=== PATIENT | female | born 1960 | race Caucasian/White ===

== ENCOUNTER → 2023-09-03 09:17 | Outpatient (REF) | payer MEDICARE, OTHER, SELFPAY | LOC: DHCBS MAIN 09:17 | PROVIDERS: ATTENDING PHYSICIAN Internal Medicine Cardiovascular Disease; FAMILY PHYSICIAN Physician Assistant Medical | DX: I47.20 Ventricular tachycardia, unspecified (principal) | CPT/HCPCS: 93306 ==

== ENCOUNTER → 2023-10-21 11:18 | Outpatient (REF) | payer MEDICARE, OTHER, SELFPAY | LOC: WDC 11:18 | PROVIDERS: ATTENDING PHYSICIAN Physician Assistant Medical | DX: Z12.31 Encounter for screening mammogram for malignant neoplasm of breast (principal) | CPT/HCPCS: 77063; 77067 ==

== ENCOUNTER 2023-11-30 08:51 | Inpatient (IN) | payer MEDICARE, OTHER, SELFPAY ==
[2023-11-30 09:14] VITALS: BP 116/68
[2023-11-30 09:53] LABS: Hematocrit 37.2 % (37.0-47.0); Hemoglobin 12.6 g/dL (12.0-16.0); Mean Corp Hgb Conc. 33.9 g/dL (33.0-37.0); Mean Corpuscular Hgb 32.3 pg (27.0-31.0); Mean Corpuscular Volume 95.4 fL (81.0-99.0); Mean Platelet Volume 11.4 fL (7.4-10.4); Platelet Count 176 10^3/uL (130-400); Red Cell Dist. Width 12.5 % (11.5-14.5); White Blood Cell Count 3.7 10^3/uL (4.8-10.8)
--- NOTE | 2023-11-30 10:08 | CON.CAR ---
Addendum entered and electronically signed by Clemente Bazzi MD 11/30/23 11:50:
Attending addendum: Patient seen and examined. PA note reviewed and findings confirmed by me. Briefly this is a 63 y/o female with a PMH notable for an ascending aortic root and valve replacement with a [employer] mechanical AV. She is chronically
anticoagulated with warfarin. She has a reported history of anaphylaxis on beta blockers. She has a history of PAF as well as NSVT by device monitoring on 10/20/23 and is now admitted for Tikosyn loading. She has a family history of amiodarone
toxicity and prefers to avoid amiodarone if possible. She generally feels well. No syncope or near syncope.
PE:
Gen: awake, alert, oriented
HEENT: NC/AT, sclera anicteric
Lungs: Clear bilaterally
CV: Prosthetic valve click is crisp
Ext: No edema
RECOMMENDATIONS:
- Planned Tikosyn load: Planned 500mg bid based on CrCl of 90 ml/min and QTc: 410 msec
- CrCl is 90 ml/min
- Follow INR closely although there is no interaction between Tikosyn and warfarin
- Will follow QTc.
.
Original Note:
Consultation
Consultation Request
Date/Time Consultation Requested: 11/30/23
Date/Time Consultation Performed: 11/30/23
Performing Provider: Dr. Bazzi
Reason for Consultation: H&P for Tikosyn loading
Medical History
-
History of Present Illness:
Patient was seen in the office on 10/20/23 and on device check was noted to have NSVT. Patient with a h/o paroxysmal Afib. Patient does not generally have a significant burden for NSVT. Given presence of NSVT at device check during office visit the
decision was made to proceed with addition of antiarrhythmic drug. Patient was not a beta-keo candidate because of recurrent anaphylaxis for which epinephrine has been required in the past. It was felt best to avoid sotalol. There is also
family history of amiodarone lung toxicity in her father so was felt best to avoid amiodarone. Ultimately it was decided to attempt Tikosyn load. No intercurrent illnesses.
PMH:
Nonsustained VT by device check 10/20/23
Paroxysmal Afib
h/o anaphylaxis related to beta blockers requiring epinephrine in the past
Family h/o amiodarone lung toxicity, patient's father
s/p [employer] mechanical AVR and ascending aorta tube graft due to bicuspid aortic valve with severe Aortic stenosis 03/30/16
Chronic warfarin therapy managed by [facility]
Dilated CM with recovered EF 50-55% by echo 09/04/19, then 45-50% by echo 09/03/23
s/p Medtronic ICD 08/25/16
s/p Slow pathway modification ablation for SVT 12/25/13
s/p PVI for paroxysmal Afib and left atrial tachycardia ablation 10/27/17
Paroxysmal Afib
Long-standing history of PVCs
Hyperlipidemia
Past Medical History
Past Medical History: Other (in HPI)
Past Surgical History: Cardiac ([employer] Maycol mechanical AVR and ascending aorta tube graft due to bicuspid aortic valve with severe Aortic stenosis 03/30/16)
Social History
Tobacco: Non-Smoker
Alcohol: None
Drug: None
Family History
Family History: CAD and Other (CHF)
Allergies / Home Medications
Allergy/AdvReac Type Severity Reaction Status Date / Time
aspirin [Aspirin] Allergy Anaphylaxis Verified 10/20/20 13:59
Beta-Blockers Allergy Anaphylaxis Verified 10/20/20 13:59
(Beta-Adrenergic Bloc
esomeprazole magnesium Allergy Anaphylaxis Verified 10/20/20 13:59
[From Nexium]
gluten [Gluten] Allergy passed out Verified 10/20/20 13:59
NSAIDS (Non-Steroidal Allergy Anaphylaxis Verified 10/20/20 13:59
Anti-Inflamma
[Nsaids]
oseltamivir Allergy Unknown Verified 10/20/20 13:59
penicillin G Allergy Anaphylaxis Verified 10/20/20 13:59
Penicillins Allergy Anaphylaxis Verified 10/20/20 13:59
propoxyphene HCl Allergy Rash Verified 10/20/20 13:59
[From Darvon]
shellfish derived Allergy Anaphylaxis Verified 10/20/20 13:59
Sulfa (Sulfonamide Allergy Rash Verified 10/20/20 13:59
Antibiotics)
tree nut Allergy Anaphylaxis Verified 10/20/20 13:59
wheat [Wheat] Allergy Unknown Verified 10/20/20 13:59
mold Allergy Anaphylaxis Uncoded 10/20/20 13:59
unkn preseratives Allergy Unknown Uncoded 10/20/20 13:59
�Medication �Instructions �Recorded �Confirmed �Type
famotidine 20 mg tablet 20 mg PO DAILY Gastrointestinal 08/25/16 10/20/20 History
issue
diphenhydramine HCl 25 mg capsule 25 mg PO Q4HPRN PRN rash, itching 03/31/17 10/20/20 Rx
(Banophen) #10 caps
epinephrine 0.3 mg/0.3 mL 0.3 mg (0.3 mL) IM .STAT PRN 03/31/17 10/20/20 Rx
injection, auto-injector (EpiPen) difficulty Breathing ##1
cetirizine 10 mg tablet 10 mg PO DAILYPRN PRN allergies 10/27/17 10/20/20 History
furosemide 20 mg tablet (Lasix) 20 mg PO DAILYPRN PRN fluid 10/27/17 10/20/20 History
retention
multivitamin 1 tab PO DAILY Supplement 10/27/17 10/20/20 History
digoxin 125 mcg (0.125 mg) tablet 0.125 mg PO DAILY Heart 12/15/17 10/20/20 History
disease/condition
warfarin 1 mg tablet (Jantoven) 2 mg PO QPM Blood clot 02/20/18 10/20/20 History
prevention/tx
ivabradine 7.5 mg tablet (Corlanor) 7.5 mg PO BID Heart Failure 11/15/18 10/20/20 History
levothyroxine 25 mcg tablet 25 mcg PO DAILY Thyroid 01/16/20 10/20/20 History
lisinopril 10 mg tablet 15 mg PO DAILY Blood pressure 01/16/20 10/20/20 History
spironolactone 25 mg tablet 12.5 mg PO DAILY Fluid 01/16/20 10/20/20 History
retention/Swelling
albuterol sulfate 90 mcg/actuation 1 puff inhalation Q4HPRN PRN 10/20/20 Rx
aerosol inhaler (Proventil HFA) shortness of breath ##1
enoxaparin 80 mg/0.8 mL 70 mg SC PRN PRN only if off 10/20/20 10/20/20 History
subcutaneous syringe coumadine
methylprednisolone 4 mg tablets in 4 tab (4 x 4 mg) PO . DIRECT ##1 10/20/20 Rx
a dose pack (Medrol (Jalen))
potassium chloride 20 mEq 20 meq PO PRN PRN on lasix days 10/20/20 Rx
tablet,extended ##10
release(part/cryst) (K-Dur)
Review of Systems
-
History Source: Patient
All other systems: Negative unless noted
Physical Exam
Vital Signs
Temp Pulse Resp Pulse Ox
98.2 F 67 16 97
11/30/23 09:07 11/30/23 09:07 11/30/23 09:07 11/30/23 09:07
GEN: NAD, AAOx3
HEENT: EOMI, MMM
LUNGS: CTA B/L, no wheezes or rales
CV: Reg, S1/S2, + click
ABD: soft, BS+, NT, ND
EXT: No edema
NEURO: Gross non-focal
SKIN: No rash
Lab Results
11/30/23 09:34
Impression / Plan
-
Primary Firearms Specialist: Melissa Simons
PCP: Dr. Bravo
Impression:
Direct admission for Tikosyn loading 11/30/23
Nonsustained VT by device check 10/20/23
Paroxysmal Afib
h/o anaphylaxis related to beta blockers requiring epinephrine in the past
Family h/o amiodarone lung toxicity, patient's father
s/p [employer] mechanical AVR and ascending aorta tube graft due to bicuspid aortic valve with severe Aortic stenosis 03/30/16
Chronic warfarin therapy managed by [facility]
Dilated CM with recovered EF 50-55% by echo 09/04/19, then 45-50% by echo 09/03/23
s/p Medtronic ICD 08/25/16
s/p Slow pathway modification ablation for SVT 12/25/13
s/p PVI for paroxysmal Afib and left atrial tachycardia ablation 10/27/17
Paroxysmal Afib
Long-standing history of PVCs
Hyperlipidemia
Echo 03/24/16 with EF 25-30% with severe bicuspid aortic valve with peak gradient 45/mean 30 and valve area 0.8. Mild to moderate mitral regurg.
Echo 09/04/19: EF 50-55%, mild MR, [employer] AVR with peak/mean gradients 11/6 mmHg with mild AI, mild TR
Echo 09/03/23: EF 45 to 50%, stage I diastolic dysfunction, mild MR, well-seated mechanical AVR peak/mean 14/7 mmHg, mild aortic regurgitation, mild TR with PAP 28 mmHg
Plan:
-Patient was seen in the office on 10/20/23 and on device check was noted to have NSVT. Patient with a h/o paroxysmal Afib. Patient does not generally have a significant burden for NSVT. Given presence of NSVT at device check during office visit
the decision was made to proceed with addition of antiarrhythmic drug. Patient was not a beta-keo candidate because of recurrent anaphylaxis for which epinephrine has been required in the past. It was felt best to avoid sotalol. There is also
family history of amiodarone lung toxicity in her father so was felt best to avoid amiodarone. Ultimately it was decided to attempt Tikosyn load. No intercurrent illnesses.
-CrCl calculated by me is 90 based on age 63, creatinine 0.7 and weight 154 pounds. Will start Tikosyn 500 mcg every 12 hours and follow EKG 2 hours after each dose.
-Patient with known history of paroxysmal atrial fibrillation, but is in sinus rhythm on EKG today.
-Potassium is normal at 4.8 and magnesium is normal at 1.9.
-INR is therapeutic at 2.71. She is chronically anticoagulated for [employer] mechanical AVR. She does not have a history of thromboembolic event and has never been bridged as an outpatient since AVR in 2016. INRs managed by [facility] with INR goal of 2.5
to 3.5. Patient uses home monitor with fingersticks.
-ECG reviewed by me shows SR with QTc 410 ms
[2023-11-30 10:10] LABS: ALT (SGPT) 20 U/L (0-35); AST (SGOT) 28 U/L (14-36); Alkaline Phosphatase 47 U/L (38-126); Blood Urea Nitrogen 20 mg/dl (7-17); Calcium 9.3 mg/dl (8.4-10.2); Carbon Dioxide 30 mmol/L (22-30); Chloride 101 mmol/L (98-107); Glucose 99 mg/dl (70-99); Magnesium 1.9 mg/dl (1.6-2.3); Potassium 4.8 mmol/L (3.5-5.1); Sodium 136 mmol/L (135-145); Total Bilirubin 0.5 mg/dl (0.2-1.3); Total Protein 6.5 g/dl (6.3-8.2); eGFR > 60.00
[2023-11-30 10:24] LABS: Digoxin < 0.4 ng/ml (0.8-2.0)
--- NOTE | 2023-11-30 10:48 | CM ---
Reviewed chart. Met with Mrs. Childers to review discharge plans. She states prior to admission she resides with her spouse and son in a two story home without any steps to enter. She states she has a full f light of steps to get to bedroom/full
bathroom. She states she has a powder room on the first floor. She states prior to admission she was independent with ambulation and adls. She states she has a prescription plan with [facility] and uses [facility]. She states
she has a prescription for Dofetilide 250 and Dofetilide 500 and her co-pay was $13.00. Medical work-up in progress. The discharge plan is to return home with her spouse and son when medically stable.
--- NOTE | 2023-11-30 11:04 | PTCARENOTE ---
Pt received as a direct admission for Tikosyn loading. Pt in SR, rate in the 70's. Denies any chest pain or sob.
--- NOTE | 2023-11-30 11:09 | W.CARD.TIKOS ---
Initiate Tikosyn
-
I verify that the patient has not taken any verapamil (Isoptin/Calan), ketoconazole (Nizoral), cimetidine (Tagamet), trimethoprim (Trimpex), trimethoprim/sulfamethoxazole (Bactrim), megesterol (Megace), prochlorperazine (Compazine),
hydrochlorothiazide (HCTZ), dolutegravir (Tivicay) or any Class I or Class III anti-arrhythmic within the last three days
AND
I verify that the patient has not taken amiodarone within the last THREE months, or that the patient's amiodarone plasma concentration is <0.3 mcg/mL.
Creatinine 0.7 mg/dL (0.6-1.0) 11/30/23 09:34
CrCl calculated by me is 90
Does patient have a Ventricular Conduction Abnormality: No
I have assessed the baseline QTc interval (using QT for heart rate less than 60 bpm) and deemed the patient is appropriate for Dofetilide therapy. I understand that Tikosyn is contraindicated if the QTc is >440msec (500msec in patients with
ventricular conduction abnormalities).
Baseline QTc (in msec): 410
Ordering Physician: Melissa Simons
[2023-11-30] MEDS: TIKOSYN 500 MCG PO ×2 (11:21→22:47)
[2023-11-30 12:21] VITALS: BP 107/59
[2023-11-30 13:11] LABS: INR 3.68; PT 36.6 Sec (11.4-14.6)
[2023-11-30 15:12] VITALS: BP 114/66
[2023-11-30 19:35] VITALS: BP 99/70
[2023-11-30 19:36] VITALS: BP 100/61
[2023-11-30] MEDS: NON-FORMULARY ITEM 7.5 MG PO (21:55)
[2023-11-30] MEDS: ZOLOFT 50 MG PO (21:56)
[2023-11-30 22:46] VITALS: BP 111/63
--- NOTE | 2023-12-01 01:44 | PTCARENOTE ---
Pt received at start of shift, HR SR/SB. Pt OOB walking the halls of IVU/CVICU. Once back in bed, updated pt on plan of care. Reinforced purpose of tikosyn and why we are monitoring QTc. Pt states understanding. Dose #2 of tikosyn administered - QTc
471.
[2023-12-01 04:54] VITALS: BP 111/61
[2023-12-01] MEDS: SYNTHROID 25 MCG PO (04:54)
[2023-12-01 05:45] LABS: INR 3.24; PT 33.1 Sec (11.4-14.6)
[2023-12-01 05:57] LABS: Blood Urea Nitrogen 19 mg/dl (7-17); Calcium 9.9 mg/dl (8.4-10.2); Carbon Dioxide 30 mmol/L (22-30); Chloride 103 mmol/L (98-107); Glucose 96 mg/dl (70-99); Potassium 4.9 mmol/L (3.5-5.1); Sodium 137 mmol/L (135-145); eGFR > 60.00
--- NOTE | 2023-12-01 07:43 | W.PN.CARDCBS ---
Addendum entered and electronically signed by Suleman Gutierrez MD 12/01/23 10:35:
I saw and examined the patient.
The City Comptroller's note was reviewed and I agree with the note.
Comment: Briefly, 63-year-old woman past medical history of paroxysmal atrial fibrillation and nonsustained VT who presents for Tikosyn loading
Received her third dose of Tikosyn this morning
QTc reamins WNL, continue serial ECGs
Monitor on telemetry
Replete electrolytes
If she remains stable, tentative plan for discharge tomorrow following fifth dose
Original Note:
Today's Communication / Plan
-
Cont Tikosyn 500 mcg q 12 hours, 3rd dose this AM and check ECG 2 hours later
Likely d/c to home tomorrow
Impression / Plan
-
Primary System Developer Associate Manager: Melissa Simons
PCP: Dr. Bravo
Impression:
Direct admission for Tikosyn loading 11/30/23
Nonsustained VT by device check 10/20/23
Paroxysmal Afib
h/o anaphylaxis related to beta blockers requiring epinephrine in the past
Family h/o amiodarone lung toxicity, patient's father
s/p [employer] mechanical AVR and ascending aorta tube graft due to bicuspid aortic valve with severe Aortic stenosis 03/30/16
Chronic warfarin therapy managed by [facility]
Dilated CM with recovered EF 50-55% by echo 09/04/19, then 45-50% by echo 09/03/23
s/p Medtronic ICD 08/25/16
s/p Slow pathway modification ablation for SVT 12/25/13
s/p PVI for paroxysmal Afib and left atrial tachycardia ablation 10/27/17
Paroxysmal Afib
Long-standing history of PVCs
Hyperlipidemia
Echo 03/24/16 with EF 25-30% with severe bicuspid aortic valve with peak gradient 45/mean 30 and valve area 0.8. Mild to moderate mitral regurg.
Echo 09/04/19: EF 50-55%, mild MR, [employer] AVR with peak/mean gradients 11/6 mmHg with mild AI, mild TR
Echo 09/03/23: EF 45 to 50%, stage I diastolic dysfunction, mild MR, well-seated mechanical AVR peak/mean 14/7 mmHg, mild aortic regurgitation, mild TR with PAP 28 mmHg
Plan:
-QTc stable at 471 ms after 2nd dose of Tikosyn 500 mcg given Wednesday night. 3rd and 4th doses of Tikosyn planned for Wednesday morning and night.
-Remains in SR, Tikosyn primarily being started for NSVT on outpatient device check, but there is a h/o paroxysmal Afib.
-CrCl calculated by me is 90 based on age 63, creatinine 0.7 and weight 154 pounds.
-Potassium is normal at 4.8 and magnesium is normal at 1.9.
-INR 3.24 on 12/01/23. Will order warfarin 1 mg 12/01/23 PM. She is chronically anticoagulated for [employer] mechanical AVR. She does not have a history of thromboembolic event and has never been bridged as an outpatient since AVR in 2016. INRs managed
by [facility] with INR goal of 2.5 to 3.5. Patient uses home monitor with fingersticks.
HPI: Patient was seen in the office on 10/20/23 and on device check was noted to have NSVT. Patient with a h/o paroxysmal Afib. Patient does not generally have a significant burden for NSVT. Given presence of NSVT at device check during office
visit the decision was made to proceed with addition of antiarrhythmic drug. Patient was not a beta-keo candidate because of recurrent anaphylaxis for which epinephrine has been required in the past. It was felt best to avoid sotalol. There
is also family history of amiodarone lung toxicity in her father so was felt best to avoid amiodarone. Ultimately it was decided to attempt Tikosyn load. No intercurrent illnesses.
Progress Note - System Developer Associate Manager
Subjective
Date of Service: December 01, 2023
She feels well
Objective
Labs:
11/30/23 09:34
12/01/23 05:02
Labs
Hgb 12.6 g/dL (12.0-16.0) 11/30/23 09:34
Hct 37.2 % (37.0-47.0) 11/30/23 09:34
Plt Count 176 10^3/uL (130-400) 11/30/23 09:34
PT 33.1 Sec (11.4-14.6) H 12/01/23 05:02
INR 3.24 12/01/23 05:02
Sodium 137 mmol/L (135-145) 12/01/23 05:02
Potassium 4.9 mmol/L (3.5-5.1) 12/01/23 05:02
BUN 19 mg/dl (7-17) H 12/01/23 05:02
Creatinine 0.7 mg/dL (0.6-1.0) 12/01/23 05:02
Glucose 96 mg/dl (70-99) 12/01/23 05:02
Digoxin < 0.4 ng/ml (0.8-2.0) L 11/30/23 09:34
Vital Signs and I&O:
Vital Signs
Temp Pulse Resp BP Pulse Ox
97.9 F 62 16 111/61 97
12/01/23 04:55 12/01/23 04:54 12/01/23 04:55 12/01/23 04:54 12/01/23 04:55
Vital Signs
Temp Pulse Resp BP Pulse Ox
97.9 F 62 16 111/61 97
12/01/23 04:55 12/01/23 04:54 12/01/23 04:55 12/01/23 04:54 12/01/23 04:55
Physical Exam
Physical Exam
GEN: NAD, AAOx3
HEENT: MMM
LUNGS: No audible wheeze
CV: SR on tele
ABD: ND
EXT: No edema B/L
NEURO: Gross non-focal
SKIN: No rash
[2023-12-01 08:03] VITALS: BP 114/49
[2023-12-01] MEDS: ZESTRIL 15 MG PO (08:18)
[2023-12-01] MEDS: NON-FORMULARY ITEM 7.5 MG PO ×2 (08:21→19:47)
[2023-12-01] MEDS: PEPCID 40 MG PO (08:22)
[2023-12-01] MEDS: ALDACTONE 12.5 MG PO (08:23)
[2023-12-01] MEDS: TIKOSYN 500 MCG PO (09:37)
[2023-12-01 11:20] VITALS: BP 107/63
--- NOTE | 2023-12-01 13:10 | CM ---
Addendum entered by Yocasta Preston 12/01/23 13:28:
Telephone call to [employer] [facility] to check on co-pay for Dofetilide 250 mcg bid. Her co-pay would be $5.39 a month. She also has a 30 day supply of Dofetilide at home already filled.
Original Note:
Reviewed chart. Met with Mrs. Childers to review discharge plans. She states she already filled her script for Dofetilide 500 mcg. Prior to admission she resides with her spouse and son in a two story home without any steps to enter. She has a full
flight of steps to get to bedroom/full bathroom. She has a powder room on the first floor. Prior to admission she was independent with ambulation and adls. She does not have any DME in the home. She has a prescription plan with [facility] and uses [facility]. Medical work-up in progress. The discharge plan is to return home with her spouse and son when medically stable.
[2023-12-01 15:53] VITALS: BP 103/48
--- NOTE | 2023-12-01 17:05 | PTCARENOTE ---
Pt remains in SR. Tolerating Tikosyn. QTC 519 reported to Emilie ROSAS. Dose decreased to 250mg for next dose. Pt with no c/o.
[2023-12-01 18:57] VITALS: BP 113/51
[2023-12-01] MEDS: COUMADIN 1 MG PO (21:00)
[2023-12-01] MEDS: TIKOSYN 250 MCG PO (21:02)
[2023-12-01] MEDS: ZOLOFT 50 MG PO (21:06)
[2023-12-01 23:05] VITALS: BP 111/59
--- NOTE | 2023-12-02 00:33 | PTCARENOTE ---
QTc following dose #4 Tikosyn 461 ms. Pt. remains in NSR, VSS, ambulates frequently when awake. Currently sleeping.
[2023-12-02 04:22] VITALS: BP 115/43
[2023-12-02 05:24] LABS: INR 2.83; PT 29.7 Sec (11.4-14.6)
[2023-12-02 06:00] VITALS: BMI 25.9
[2023-12-02] MEDS: SYNTHROID 25 MCG PO (06:32)
[2023-12-02 07:58] VITALS: BP 111/64
[2023-12-02] MEDS: PEPCID 40 MG PO (08:04)
[2023-12-02] MEDS: TIKOSYN 250 MCG PO (08:04)
[2023-12-02] MEDS: ALDACTONE 12.5 MG PO (08:04)
[2023-12-02] MEDS: ZESTRIL 15 MG PO (08:04)
[2023-12-02] MEDS: NON-FORMULARY ITEM 7.5 MG PO (08:06)
--- NOTE | 2023-12-02 08:08 | W.PN.CARDCBS ---
Addendum entered and electronically signed by Jackie Lemus DO 12/02/23 12:35:
I saw and examined the patient.
The Injection Wax Molder's note was reviewed and I agree with the note.
Comment: Patient seen and examined. Feeling well and anxious to return home following Tikosyn initiation
General: No acute distress, AAOX3
Heart: Regular, positive S1/S2, No murmur. + Device
Lungs: CTA b/l, negative wheezes/rales/rhonchi
Abd: Positive BS, NT/ND, neg rebound/rigidity/guarding
Ext: Negative cyanosis/clubbing/edema
Neuro: nonfocal
Plan:
Dilated cardiomyopathy with recovered EF now low normal with a EF 50-55% with history of SVT status post ablation in 2013 as well as PAF and atrial tachycardia also noted by device to have nonsustained ventricular tachycardia admitted for Tikosyn
-If QTc stable after 5th dose then will discharge to home on 250 mcg q 12 hours. .
-INR 2.83 on 12/02/23. Patient will resume her usual regimen of warfarin 2 mg daily on discharge. She is chronically anticoagulated for [employer] mechanical AVR. She does not have a history of thromboembolic event and has never been bridged as an
outpatient since AVR in 2015. INRs managed by [facility] with INR goal of 2.5 to 3.5. Patient uses home monitor with fingersticks.
-Euvolemic throughout hospitalization
-Likely d.c to home 12/02/23
Original Note:
Today's Communication / Plan
-
Check ECG 2 hours 5th dose of Tikosyn given this AM
Dose lowered to 250 mcg starting last night which was the 4th dose because QTc prolonged after 3rd dose of 500 mcg
INRs stable
Impression / Plan
-
Primary Floor Space Allocator: Melissa Simons
PCP: Dr. Bravo
Impression:
Direct admission for Tikosyn loading 11/30/23
Nonsustained VT by device check 4/17/24
Paroxysmal Afib
h/o anaphylaxis related to beta blockers requiring epinephrine in the past
Family h/o amiodarone lung toxicity, patient's father
s/p [employer] mechanical AVR and ascending aorta tube graft due to bicuspid aortic valve with severe Aortic stenosis 03/30/16
Chronic warfarin therapy managed by [facility]
Dilated CM with recovered EF 50-55% by echo 09/04/19, then 45-50% by echo 09/03/23
s/p Medtronic ICD 08/25/16
s/p Slow pathway modification ablation for SVT 12/25/13
s/p PVI for paroxysmal Afib and left atrial tachycardia ablation 10/27/17
Paroxysmal Afib
Long-standing history of PVCs
Hyperlipidemia
Echo 03/24/16 with EF 25-30% with severe bicuspid aortic valve with peak gradient 45/mean 30 and valve area 0.8. Mild to moderate mitral regurg.
Echo 09/04/19: EF 50-55%, mild MR, [employer] AVR with peak/mean gradients 11/6 mmHg with mild AI, mild TR
Echo 09/03/23: EF 45 to 50%, stage I diastolic dysfunction, mild MR, well-seated mechanical AVR peak/mean 14/7 mmHg, mild aortic regurgitation, mild TR with PAP 28 mmHg
Plan:
-QTc prolonged to 519 after 3rd dose of Tikosyn 500 mcg that was given on Wednesday morning. Tikosyn dose lowered to 250 mcg starting with the Wednesday night dose. QTc stable at 461 ms after 4th dose of Tikosyn Wednesday night. 5th dose of Tikosyn
given morning and await ECG.
-If QTc stable after 5th dose then will discharge to home on 250 mcg q 12 hours. Patient filled Rx for 500 mcg and 250 mcg prior to admission, this was part of checking the cost to assure affordability prior to admission. As a result patient was
told to discard the 500 mcg capsules. Rx for 3 days supply sent to pharmacy 12/02/23.
-Rare couplets noted on tele reviewed by me 12/02/23. Remains in SR, Tikosyn primarily being started for NSVT on outpatient device check, but there is a h/o paroxysmal Afib.
-CrCl calculated by me is 90 based on age 63, creatinine 0.7 and weight 154 pounds.
-Electrolytes normal without supplementation throughout admission
-INR 2.83 on 12/02/23. Patient will resume her usual regimen of warfarin 2 mg daily on discharge. She is chronically anticoagulated for [employer] mechanical AVR. She does not have a history of thromboembolic event and has never been bridged as an
outpatient since AVR in 2016. INRs managed by [facility] with INR goal of 2.5 to 3.5. Patient uses home monitor with fingersticks.
-Likely d.c to home 12/02/23
HPI: Patient was seen in the office on 10/20/23 and on device check was noted to have NSVT. Patient with a h/o paroxysmal Afib. Patient does not generally have a significant burden for NSVT. Given presence of NSVT at device check during office
visit the decision was made to proceed with addition of antiarrhythmic drug. Patient was not a beta-keo candidate because of recurrent anaphylaxis for which epinephrine has been required in the past. It was felt best to avoid sotalol. There
is also family history of amiodarone lung toxicity in her father so was felt best to avoid amiodarone. Ultimately it was decided to attempt Tikosyn load. No intercurrent illnesses.
Progress Note - Floor Space Allocator
Subjective
Date of Service: December 02, 2023
Feels well, no palpitations
Objective
Labs:
11/30/23 09:34
12/01/23 05:02
Labs
Hgb 12.6 g/dL (12.0-16.0) 11/30/23 09:34
Hct 37.2 % (37.0-47.0) 11/30/23 09:34
Plt Count 176 10^3/uL (130-400) 11/30/23 09:34
PT 29.7 Sec (11.4-14.6) H 12/02/23 04:30
INR 2.83 12/02/23 04:30
Sodium 137 mmol/L (135-145) 12/01/23 05:02
Potassium 4.9 mmol/L (3.5-5.1) 12/01/23 05:02
BUN 19 mg/dl (7-17) H 12/01/23 05:02
Creatinine 0.7 mg/dL (0.6-1.0) 12/01/23 05:02
Glucose 96 mg/dl (70-99) 12/01/23 05:02
Digoxin < 0.4 ng/ml (0.8-2.0) L 11/30/23 09:34
Vital Signs and I&O:
Vital Signs
Temp Pulse Resp BP Pulse Ox
98.3 F 62 20 115/43 98
12/02/23 07:56 12/02/23 04:21 12/02/23 07:56 12/02/23 04:22 12/02/23 07:56
Vital Signs
Temp Pulse Resp BP Pulse Ox
98.3 F 62 20 115/43 98
12/02/23 07:56 12/02/23 04:21 12/02/23 07:56 12/02/23 04:22 12/02/23 07:56
Intake & Output
11/30/23 12/01/23 12/02/23 12/03/23
06:59 06:59 06:59 06:59
Intake Total 480 / 480
Balance 480 / 480
Physical Exam
Physical Exam
GEN: NAD, AAOx3
HEENT: MMM
LUNGS: No audible wheeze
CV: SR on tele
ABD: ND
EXT: No edema B/L
NEURO: Gross non-focal
SKIN: No rash
--- NOTE | 2023-12-02 08:15 | PTCARENOTE ---
Assumed care of patient. Walking rounds completed with previous RN. Pt assessed while she was sitting up in bed. Pt alert and oriented x4. Independent in the room. NSR on tele with rates in the 70s. BP stable. Bilateral radial and DP pulses
palpable. No edema noted. +click. POX 98% on RA. Lungs clear throughout. No cough noted. Abdomen soft, nontender. +BS. Last BM was reported to be last night. Denies issues voiding. No skin issues. Left forearm 22g PIV intact. See MAR for medication
administration. See worklist for complete nursing assessment. Plan of care reviewed and patient in agreement.
--- NOTE | 2023-12-02 09:32 | W.DS.TRANS ---
DC Summary - Bracer
-
Discharge Instructions:
Discharge Diagnosis/Procedures Direct admission for Tikosyn (dofetilide)
loading for non-sustained ventricular
tachycardia and paroxysmal atrial fibrillation
Diet 2 Gram Sodium
Activity As tolerated
Driving Restrictions As prior to admission
Bathing Restrictions None
Specialty Instructions Weigh Daily
Instructions:
Stand-Alone Forms:
Changes to Home Medications: Yes
Discharge Medications:
DC Medications w/original date entered in [facility]
famotidine 20 mg tablet 20 mg PO HS Gastrointestinal issue 08/25/16
diphenhydramine HCl 25 mg capsule (Banophen) 25 mg PO Q4HPRN PRN rash, itching #10 caps 03/31/17
epinephrine 0.3 mg/0.3 mL injection, auto-injector (EpiPen) 0.3 mg (0.3 mL) IM .STAT PRN difficulty Breathing ##1 03/31/17
cetirizine 10 mg tablet 10 mg PO DAILYPRN PRN allergies 10/27/17
furosemide 20 mg tablet (Lasix) 20 mg PO DAILYPRN PRN fluid retention 10/27/17
albuterol sulfate 90 mcg/actuation aerosol inhaler (Proventil HFA) 1 puff inhalation Q4HPRN PRN shortness of breath ##1 10/20/20
ivabradine 7.5 mg tablet (Corlanor) 7.5 mg PO BID Heart Disease/Condition 11/30/23
levothyroxine 25 mcg tablet 25 mcg PO DAILY Thyroid 11/30/23
lisinopril 10 mg tablet 15 mg PO DAILY Blood Pressure 11/30/23
potassium chloride 10 mEq tablet,extended release 10 meq PO DAILY PRN only take with furosemide 11/30/23
sertraline 50 mg tablet (Zoloft) 50 mg PO HS 11/30/23
spironolactone 25 mg tablet (Aldactone) 12.5 mg PO DAILY Fluid Retention/Swelling 11/30/23
warfarin 2 mg tablet 2 mg PO QPM Blood Clot Prevention/Tx 11/30/23
dofetilide 250 mcg capsule (Tikosyn) 250 mcg PO Q12H Arrhythmia #180 caps 12/02/23
Home Medication Changes
Digoxin was stopped prior to admission
New to Tikosyn
Pending Results: No
--- NOTE | 2023-12-02 09:58 | CM ---
Reviewed chart. Met with Mrs. Childers to review discharge plans. She states she feels well and maybe able to go home soon. The three day Dofetilide script was sent to . Pharmacy so a three day supply can go home with her. Prior to admission Mrs. Alvarado (~) resides with her spouse and son in a two story home without any steps to enter. She has a full flight of steps to get to bedroom/full bathroom. She has a powder room on the first floor. Prior to admission she was independent with ambulation
and adls. She does not have any DME in the home. She has a prescription plan with [facility] and uses [facility]. Medical work-up in progress. The discharge plan is to return home with her spouse and son when medically stable.
[2023-12-02 11:22] VITALS: BP 83/52
[2023-12-02 11:23] VITALS: BP 84/51
[2023-12-02 11:27] VITALS: BP 107/69
[2023-12-02 11:37] VITALS: BP 107/69
--- NOTE | 2023-12-02 13:49 | PTCARENOTE ---
Discharge order received. Instructions reviewed with patient. All questions answered. Pt stable. PIV and tele d/c.
== END 2023-12-02 14:21 | disposition home or self-care (01) | DRG 309 ==
LOC: IVU 08:51
PROVIDERS: Internal Medicine Cardiovascular Disease; Physician Assistant Medical; ADMITTING PHYSICIAN Internal Medicine Cardiovascular Disease; FAMILY PHYSICIAN Physician Assistant Medical; OTHER PHYSICIAN Internal Medicine Interventional Cardiology
PROC: 3E0DXRZ Introduction of Antiarrhythmic into Mouth and Pharynx, External Approach (ICD-10-PCS; 2023-11-30)
DX: I47.29 Other ventricular tachycardia (principal); I42.0 Dilated cardiomyopathy; I48.0 Paroxysmal atrial fibrillation; I34.0 Nonrheumatic mitral (valve) insufficiency; E78.5 Hyperlipidemia, unspecified; I49.3 Ventricular premature depolarization; Z83.6 Family history of other diseases of the respiratory system; Z95.2 Presence of prosthetic heart valve; Z95.810 Presence of automatic (implantable) cardiac defibrillator; Z79.01 Long term (current) use of anticoagulants; Z82.49 Family history of ischemic heart disease and other diseases of the circulatory system; Z88.6 Allergy status to analgesic agent; Z91.018 Allergy to other foods; Z91.013 Allergy to seafood; Z88.2 Allergy status to sulfonamides; Z88.8 Allergy status to other drugs, medicaments and biological substances
CPT/HCPCS: 80048; 80053; 80162; 83735; 85027; 85610; 93005

== ENCOUNTER → 2024-06-20 10:58 | Outpatient (REF) | payer MEDICARE, OTHER, SELFPAY | LOC: WDC 10:58 | PROVIDERS: ATTENDING PHYSICIAN Physician Assistant Medical | DX: R92.30 Dense breasts, unspecified (principal) | CPT/HCPCS: 76641 ==

== ENCOUNTER → 2025-03-19 14:55 | Outpatient (REF) | payer MEDICARE, OTHER, SELFPAY | LOC: RAD 14:55 | PROVIDERS: ATTENDING PHYSICIAN Student in an Organized Health Care Education/Training Program; FAMILY PHYSICIAN Physician Assistant Medical | DX: N95.0 Postmenopausal bleeding (principal) | CPT/HCPCS: 76830; 76856 ==

== ENCOUNTER 2025-03-25 00:47 | Emergency (ER) | payer MEDICARE, OTHER, SELFPAY ==
[2025-03-25 00:49] VITALS: BP 106/74
[2025-03-25 01:03] VITALS: BP 103/56
--- NOTE | 2025-03-25 01:13 | ED.GENMED ---
History of Present Illness
General
Chief Complaint: Allergic Reaction
Source: patient
Time Seen by Provider: 03/25/25 01:05
History of Present Illness
History of Present Illness:
64-year-old female with past medical history of aortic stenosis status post aortic valve replacement, CHF, status post pacemaker/defibrillator placement, GERD, peptic ulcer disease presenting to the ER for evaluation after she awoke to hivmagdalena, lip
swelling and generalized pruritus. Patient took 7 Benadryl and 60 mg Pepcid at just after midnight, since arriving to the ER reports most of the symptoms seem to be resolved. Patient states she cannot think of anything that may have precipitated
the rash/hives other than patient notes that a neighbor was burning debris in their backyard earlier this evening. Patient denies any history of similar. No new medications, soaps, detergents, jewelry. She is denying any respiratory symptoms
Past History
Past History
ED Past Medical History: Arrthythmia (History of atrial fibrillation, SVT), GERD, HTN, Valvular disease (Aortic stenosis), Other (bicuspid aortic valve, aortic anuerysm) and Other (Migraine, peptic ulcer disease, Hiatel hernia, Ulcers, herniated
disc, skin cancer); Negative Asthma
ED Past Surgical History: Cardiac (Ablation for A. fib and SVT, aortic valve replacement, aortic graft)
Social History
Tobacco: Non-smoker
Alcohol: Occasional
Drug: None
Personal:
Living: with family
Employment: Employed
Family History
Family History: CAD and Other
Review of Systems
Review of Systems
All Other Systems: ROS reviewed and negative except as documented in HPI and ROS
Phy Exam
Physical Exam
Physical Exam:
GENERAL: Alert , in no apparent distress
HEAD: Normocephalic atraumatic
EYE: conjunctiva clear
NECK: Supple
ENT: o/p clr, mmm.
CARDIAC: Regular rate and rhythm
LUNGS: Clear breath sounds bilaterally, no acute respiratory distress, no wheezes/rales/rhonchi
NEUROLOGICAL: Alert and oriented
SKIN: Warm and dry, skin intact.
MUSCULOSKELETAL: well perfused.
PSYCH: Normal and appropriate interaction.
Scores
Heart Failure Risk
Heart Failure Risk Score: Not Applicable
Heart Score for Chest Pain Patients
STEMI patient?: Not applicable
Withdrawal Assessment of Alcohol
Withdrawal Assessment Completed?: Not applicable
Course
Orders/Labs/Results
Orders:
Orders
03/25/25 01:12
Prednisone [Deltasone] 50 mg PO NOW STA
Vital Signs
Initial and Last Documented VS:
Initial Vital Signs
Temp Pulse Resp BP Pulse Ox
97.4 F 80 20 106/74 100
03/25/25 00:49 03/25/25 00:49 03/25/25 00:49 03/25/25 00:49 03/25/25 00:49
Last Documented Vital Signs
Temp Pulse Resp BP Pulse Ox
97.4 F 77 18 105/65 97
03/25/25 00:49 03/25/25 02:15 03/25/25 02:15 03/25/25 02:00 03/25/25 02:15
MDM/Problems Addressed
Differential Diagnosis Includes:
Hives
Wilmer Inhibitor induced angioedema
Anaphylaxis
Less concern for infectious cause for rash
MDM/Problems Addressed:
64-year-old female presenting to the ER for evaluation of hives and generalized pruritus that started around midnight, awaking the patient from sleep. Took meds at home and reports significant improvement of symptoms if not near full resolution.
No clear etiology for why the rash. Will treat with 50 mg of Benadryl and observed in the ER. Considered EpiPen however given rapid improvement of symptoms felt this was not needed at this time
*Pulse Oximetry
SaO2: 100
Patient hypoxic: no
*Critical Care Note
Total Time (30-74mins, 75-104mins- exclusive of procedures): Not Applicable
Patient Management
Escalation/DeEscalation of care consider admission/obs:
Patient observed continuously. She reports feeling significantly improved and would like to be discharged home. Prescription for the prednisone was sent to patient's pharmacy. Aware of return precautions.
ED Attending Note
-
Portions of this chart may have been created with voice recognition software.� Occasional wrong word or��sound alike� substitutions may have occurred due to the inherent limitations of voice recognition software.
Discharge Plan
Departure
Patient Disposition: Home (Routine Discharge)
Date of Disposition: 03/25/25
Time of Disposition: 02:23
Patient with high blood pressure during this ER visit?: No
Discharge Problem:
Hives
Instructions: Hives (DC)
Prescriptions:
New
prednisone 20 mg tablet
40 mg PO DAILY 4 Days Qty: 8 0RF
No Action
famotidine 20 MG tablet
20 mg PO HS
diphenhydramine HCl [Banophen] 25 MG capsule
25 mg PO Q4HPRN PRN (Reason: rash, itching) Qty: 10 0RF
epinephrine [EpiPen] 0.3 MG/0.3/SYRINGE auto-injector
0.3 mg IM .STAT PRN (Reason: difficulty Breathing) Qty: 1 0RF
cetirizine 10 MG tablet
10 mg PO DAILYPRN PRN (Reason: allergies)
furosemide [Lasix] 20 MG tablet
20 mg PO DAILYPRN PRN (Reason: fluid retention)
albuterol sulfate [Proventil HFA] 90 MCG/PUFF HFA aerosol inhaler
1 puff inhalation Q4HPRN PRN (Reason: shortness of breath) Qty: 1 0RF
Corlanor 7.5 mg Tablet
7.5 mg PO BID
spironolactone [Aldactone] 25 mg Tablet
12.5 mg PO DAILY
levothyroxine 25 mcg Tablet
25 mcg PO DAILY
sertraline [Zoloft] 50 mg Tablet
50 mg PO HS
lisinopril 10 mg Tablet
15 mg PO DAILY
warfarin 2 mg Tablet
2 mg PO QPM
potassium chloride 10 mEq Tablet Extended Release
10 meq PO DAILY PRN (Reason: only take with furosemide )
dofetilide [Tikosyn] 250 mcg capsule
250 mcg PO Q12H Qty: 180 3RF
Referrals:
Dorota Ibarra PA [Family Provider, Family Practice]
Interventions
Interventions:
*Risk Screen - Suicide Last Done: 03/25/25 00:49
*Neglect/Abuse Screening Last Done: 03/25/25 00:49
*Nursing Disposition Last Done: 03/25/25 02:29
ED- Cardiac Assessment Last Done: 03/25/25 01:10
ED- Pulmonary Assessment Last Done: 03/25/25 01:10
ED-Skin Assessment Last Done: 03/25/25 01:10
Discharge Date and Time
Discharge Date/Time: 03/25/25 02:40
Print Language: CROATIAN
[2025-03-25] MEDS: DELTASONE 50 MG PO (01:16)
[2025-03-25 02:00] VITALS: BP 105/65
== END 2025-03-25 02:40 | disposition home or self-care (01) ==
LOC: EMR 00:47
PROVIDERS: EMERGENCY PHYSICIAN Emergency Medicine; FAMILY PHYSICIAN Physician Assistant Medical
DX: L50.9 Urticaria, unspecified (principal); I35.0 Nonrheumatic aortic (valve) stenosis; Q23.81 Bicuspid aortic valve; I48.91 Unspecified atrial fibrillation; I11.0 Hypertensive heart disease with heart failure; I50.9 Heart failure, unspecified; I71.9 Aortic aneurysm of unspecified site, without rupture; K21.9 Gastro-esophageal reflux disease without esophagitis; Z79.01 Long term (current) use of anticoagulants; Z95.2 Presence of prosthetic heart valve; Z95.810 Presence of automatic (implantable) cardiac defibrillator; Z85.828 Personal history of other malignant neoplasm of skin; Z82.49 Family history of ischemic heart disease and other diseases of the circulatory system
CPT/HCPCS: 99283

== ENCOUNTER → 2025-03-27 15:05 | Outpatient (REF) | payer MEDICARE, OTHER, SELFPAY | LOC: WDC 15:05 | PROVIDERS: ATTENDING PHYSICIAN Physician Assistant Medical | DX: Z12.31 Encounter for screening mammogram for malignant neoplasm of breast (principal) | CPT/HCPCS: 77063; 77067 ==

== ENCOUNTER → 2025-03-28 15:26 | Outpatient (REF) | payer MEDICARE, OTHER, SELFPAY | LOC: RAD 15:26 | PROVIDERS: ATTENDING PHYSICIAN Family Medicine | DX: H53.8 Other visual disturbances (principal) | CPT/HCPCS: 70496; Q9967 ==